=== PATIENT | female | born 1970 | race Caucasian/White ===

== ENCOUNTER 2020-09-26 | Outpatient (REF) | payer OTHER, SELFPAY ==
[2020-10-02 15:37] LABS: HPV mRNA E6/E7 rflx Not Detected (Not Detected)
== END 2020-09-26 00:01 | disposition home or self-care (01) ==
LOC: HO.LNP
PROVIDERS: Visit Provider Advanced Practice Midwife
DX: Z01.419 Encounter for gynecological examination (general) (routine) without abnormal findings (principal)
CPT/HCPCS: 87624; 87625; 88142

== ENCOUNTER → 2020-09-26 10:57 | Outpatient (BNVA) | payer OTHER, SELFPAY | PROVIDERS: PCP Internal Medicine; Referring Provider Internal Medicine; Visit Provider Advanced Practice Midwife | DX: Z76.89 Persons encountering health services in other specified circumstances (principal) ==

== ENCOUNTER 2020-09-28 11:04 | Outpatient (REF) | payer OTHER, SELFPAY | END 2020-09-28 11:05 | disposition home or self-care (01) | LOC: HO.LAB 11:04 | PROVIDERS: Visit Provider Advanced Practice Midwife | DX: Z13.89 Encounter for screening for other disorder (principal) | CPT/HCPCS: 88142 ==

== ENCOUNTER 2020-10-11 11:47 | Outpatient (REF) | payer OTHER, SELFPAY ==
--- NOTE | 2020-10-11 11:53 | US_ITS ---
EXAMINATION: US PELVIS COMPLETE CLINICAL INFORMATION: Pelvic swelling; postmenopausal patient. COMPARISON: Pelvic ultrasound dated 03/01/2014; CT abdomen and pelvis dated 12/31/2018. TECHNIQUE: Transabdominal and transvaginal imaging were performed. FINDINGS: The uterus is of normal size and echogenicity measuring 7.0 x 4.5 x 4.9 cm. The uterus is anteverted and anteflexed. A regular, homogeneous endometrium is identified measuring 0.6 cm. FIBROIDS: There is 1 fibroid seen. 1. Location: Fundus, myometrial. Size: 1.7 x 2.0 x 1.6 cm. Fibroid characteristics: Hypoechoic. Both ovaries are of normal size and echogenicity. The right measures 2.3 x 1.6 x 1.7 cm for a volume of 4.3 mL. The left measures 1.5 x 0.9 x 2.4 cm for a volume of 1.7 mL. There is no pelvic free fluid. No adnexal mass is seen. There is a tubular structure seen adjacent to the left ovary. US/US transvaginal IMPRESSION: 1. A small uterine fibroid is seen. 2. A left adnexal tubular structure is seen, possibly a hydrosalpinx. If clinically indicated, this can be further evaluated with MRI or hysterosalpingography.
--- NOTE | 2020-10-11 11:53 | US_ITS ---
EXAMINATION: US PELVIS COMPLETE CLINICAL INFORMATION: Pelvic swelling; postmenopausal patient. COMPARISON: Pelvic ultrasound dated 03/01/2014; CT abdomen and pelvis dated 12/31/2018. TECHNIQUE: Transabdominal and transvaginal imaging were performed. FINDINGS: The uterus is of normal size and echogenicity measuring 7.0 x 4.5 x 4.9 cm. The uterus is anteverted and anteflexed. A regular, homogeneous endometrium is identified measuring 0.6 cm. FIBROIDS: There is 1 fibroid seen. 1. Location: Fundus, myometrial. Size: 1.7 x 2.0 x 1.6 cm. Fibroid characteristics: Hypoechoic. Both ovaries are of normal size and echogenicity. The right measures 2.3 x 1.6 x 1.7 cm for a volume of 4.3 mL. The left measures 1.5 x 0.9 x 2.4 cm for a volume of 1.7 mL. There is no pelvic free fluid. No adnexal mass is seen. There is a tubular structure seen adjacent to the left ovary. US/US pelvic complete IMPRESSION: 1. A small uterine fibroid is seen. 2. A left adnexal tubular structure is seen, possibly a hydrosalpinx. If clinically indicated, this can be further evaluated with MRI or hysterosalpingography.
== END 2020-10-11 11:48 | disposition home or self-care (01) ==
LOC: HO.US 11:47
PROVIDERS: PCP Internal Medicine; Visit Provider Advanced Practice Midwife
DX: R19.00 Intra-abdominal and pelvic swelling, mass and lump, unspecified site (principal)
CPT/HCPCS: 76830; 76856

== ENCOUNTER 2020-10-23 11:05 | Outpatient (REF) | payer OTHER, SELFPAY ==
[2020-10-23 16:08] LABS: HCG Quantitative 3 mIU/mL
[2020-10-24 09:07] LABS: Follicle Stimulating Hormone 69.7 mIU/mL
== END 2020-10-23 11:06 | disposition home or self-care (01) ==
LOC: HO.LAB 11:05
PROVIDERS: Visit Provider Advanced Practice Midwife
DX: N91.2 Amenorrhea, unspecified (principal); N94.89 Other specified conditions associated with female genital organs and menstrual cycle
CPT/HCPCS: 83001; 84702; Q3014

== ENCOUNTER 2020-11-09 08:04 | Outpatient (REF) | payer OTHER, SELFPAY | END 2020-11-09 08:05 | disposition home or self-care (01) | LOC: HO.LAB 08:04 | PROVIDERS: Visit Provider Obstetrics & Gynecology | DX: R10.2 Pelvic and perineal pain (principal); G89.29 Other chronic pain; R31.29 Other microscopic hematuria; Z79.899 Other long term (current) drug therapy | CPT/HCPCS: 81003; 87086; 99212 ==

== ENCOUNTER 2020-12-06 13:49 | Outpatient (REF) | payer OTHER, SELFPAY ==
--- NOTE | ~2020-12-06 | MM_ITS ---
EXAMINATION: MM SCREENING DIGITAL BREAST TOMOSYNTHESIS, BILATERAL CLINICAL INFORMATION: Screening. Asymptomatic. The lifetime risk of breast cancer based on the Tyrer-Cuzick Model is 7.5%. COMPARISON: Mammography: 05/04/2019 and studies dating back to 12/06/2011. TECHNIQUE: Digital breast tomosynthesis is performed in both the craniocaudal and mediolateral oblique views along with computer-aided detection (CAD). Synthesized 2D images are generated from the tomosynthesis. FINDINGS: There are scattered areas of fibroglandular density (ACR BI-RADS breast composition Category b). There is a stable parenchymal pattern within the left breast with no new abnormal dominant mass or suspicious grouping of microcalcifications. Within the anterior aspect lateral and superiorly of the right breast, there is a circumscribed density without calcifications or architectural distortion. Recommend spot compression film and ultrasound evaluation. MM/MM tomosynthesis screening BI IMPRESSION: Right breast density for further evaluation as described. ASSESSMENT: BI-RADS 0: Incomplete - Need Additional Imaging Evaluation RECOMMENDATION: 1. Additional views of the right breast. 2. Targeted ultrasound if warranted after review of the additional views. 3. Radiology department staff will contact the patient for additional imaging. This patient's information was entered into a reminder system with a target due date for their next mammogram.
== END 2020-12-06 13:50 | disposition home or self-care (01) ==
LOC: HO.MAMMO 13:49
PROVIDERS: PCP Internal Medicine; Visit Provider Internal Medicine
DX: Z12.31 Encounter for screening mammogram for malignant neoplasm of breast (principal)
CPT/HCPCS: 77063; 77067

== ENCOUNTER 2021-01-08 10:03 | Outpatient (REF) | payer OTHER, SELFPAY ==
--- NOTE | ~2021-01-08 | MM_ITS ---
EXAMINATION: MM DIAGNOSTIC DIGITAL BREAST TOMOSYNTHESIS, RIGHT US DIAGNOSTIC ULTRASOUND BREAST, RIGHT CLINICAL INFORMATION: Recall from screening for asymmetric density anterior upper outer right breast. COMPARISON: Mammography: 12/06/2020, 05/04/2019, 04/13/2018 TECHNIQUE: Digital breast tomosynthesis is performed. 2D images are generated from the tomosynthesis. The following views are obtained: 3-D spot CC, 3-D rolled CC lateral, 3-D spot MLO. Ultrasound right breast is targeted to the anterior upper outer breast. Grayscale imaging and color Doppler are performed without and with harmonics. FINDINGS: There are scattered areas of fibroglandular density (ACR BI-RADS breast composition Category b). The additional views confirm focal asymmetric density anterior upper outer right breast. This represents change from prior studies. There are some partially visualized and smooth curvilinear borders. No architectural abnormality or associated calcifications. Ultrasound demonstrates a benign complicated cyst at site of mammographic interest anterior 10:00 position measuring 1.1 x 0.8 x 0.7 cm. The cyst is anechoic with some scattered very fine avascular internal septations. There is no solid component. Margins are circumscribed and there is increased through-transmission of sound. No associated peripheral or internal color flow. There is no solid mass or ductal ectasia or architectural abnormality in the targeted area. Results are discussed with the patient at time of visit. MM/MM tomosynthesis added views R IMPRESSION: Finding on recent screening mammography corresponds to a cyst anterior 10:00 position measuring 1.1 cm with some fine avascular internal septations. No solid component. ASSESSMENT: BI-RADS 2: Benign RECOMMENDATION: Routine annual mammography screening. This patient's information was entered into a reminder system with a target due date for their next mammogram.
== END 2021-01-08 10:04 | disposition home or self-care (01) ==
LOC: HO.MAMMO 10:03
PROVIDERS: Visit Provider Internal Medicine
DX: R92.2 Inconclusive mammogram (principal)
CPT/HCPCS: 76642; 77061; 77065

== ENCOUNTER 2021-12-20 10:40 | Outpatient (REF) | payer OTHER, SELFPAY ==
[2021-12-20 17:18] LABS: CT PCR NOT DETECTED (Not Detect.); NG PCR NOT DETECTED (Not Detect.)
== END 2021-12-20 10:41 | disposition home or self-care (01) ==
LOC: HO.LNP 10:40
PROVIDERS: PCP Internal Medicine; Visit Provider Obstetrics & Gynecology
DX: Z01.419 Encounter for gynecological examination (general) (routine) without abnormal findings (principal); R10.2 Pelvic and perineal pain; G89.29 Other chronic pain; Z11.3 Encounter for screening for infections with a predominantly sexual mode of transmission; I10 Essential (primary) hypertension; E78.5 Hyperlipidemia, unspecified; Z11.8 Encounter for screening for other infectious and parasitic diseases; Z98.51 Tubal ligation status; Z91.09 Other allergy status, other than to drugs and biological substances
CPT/HCPCS: 87491; 87591; 99212

== ENCOUNTER 2022-01-09 12:35 | Outpatient (REF) | payer OTHER, SELFPAY ==
--- NOTE | ~2022-01-09 | MM_ITS ---
EXAMINATION: MM SCREENING DIGITAL BREAST TOMOSYNTHESIS, BILATERAL CLINICAL INFORMATION: Screening. Asymptomatic. The lifetime risk of breast cancer based on the Tyrer-Cuzick Model is 7%. COMPARISON: Mammography: 01/08/2021, 12/06/2020, 05/04/2019, 04/13/2018 TECHNIQUE: Digital breast tomosynthesis is performed in both the craniocaudal and mediolateral oblique views along with computer-aided detection (CAD). Synthesized 2D images are generated from the tomosynthesis. FINDINGS: There are scattered areas of fibroglandular density (ACR BI-RADS breast composition Category b). There are no significant masses, abnormal calcifications, or other abnormalities. Parenchymal pattern is similar to prior studies. There is no developing density or architectural abnormality. The axilla and skin contours are unremarkable. No significant changes. MM/MM tomosynthesis screening BI IMPRESSION: No mammographic evidence of malignancy. ASSESSMENT: BI-RADS 1: Negative RECOMMENDATION: Routine annual mammography screening. This patient's information was entered into a reminder system with a target due date for their next mammogram.
== END 2022-01-09 12:36 | disposition home or self-care (01) ==
LOC: HO.MAMMO 12:35
PROVIDERS: PCP Internal Medicine; Visit Provider Internal Medicine
DX: Z12.31 Encounter for screening mammogram for malignant neoplasm of breast (principal)
CPT/HCPCS: 77063; 77067

== ENCOUNTER 2022-01-22 13:27 | Outpatient (REF) | payer OTHER, SELFPAY ==
--- NOTE | ~2022-01-22 | US_ITS ---
EXAMINATION: US PELVIS CLINICAL INFORMATION: Pelvic and perineal pain; the last menstrual period is not specified. COMPARISON: Pelvic ultrasound dated 10/11/2020. TECHNIQUE: Ultrasound of the pelvis is performed using both transabdominal and transvaginal transducers along with Doppler. Transvaginal imaging is performed due to inadequate visualization transabdominally. FINDINGS: Uterus: The uterus is anteverted and anteflexed. The uterus measures 7.4 x 3.8 x 6.2 cm. The double wall endometrial thickness is 0.4 mm. The uterus is smooth in contour and has normal myometrial echogenicity. Within the fundus, a 2.1 x 1.5 x 2.0 cm hypoechoic myometrial fibroid is seen. On the prior examination, this measured 1.7 x 2.0 x 1.6 cm. Adnexa: The left, but not the right ovary, is visualized. The left ovary measures 2.0 x 1.9 x 1.5 cm (volume 3.0 mL). There is normal color flow to the adnexa. There is no left ovarian torsion. The left ovary contains a 1.4 x 0.9 x 1.1 cm cyst. Adjacent to the left ovary, a 2.5 x 0.5 cm anechoic, tubular structure is redemonstrated There is no pelvic ascites or fluid collection. No adnexal mass is seen. US/US pelvic and transvaginal IMPRESSION: 1. A small uterine fibroid is redemonstrated. 2. The right ovary is nonvisualized. 3. A 1.4 cm left ovarian hypoechoic, hemorrhagic cyst is of incidental note. No ultrasound follow-up is recommended. 4. A left adnexal tubular structure is redemonstrated, with appearance again suggesting a possible hydrosalpinx.
== END 2022-01-22 13:28 | disposition home or self-care (01) ==
LOC: HO.US 13:27
PROVIDERS: PCP Internal Medicine; Visit Provider Obstetrics & Gynecology
DX: R10.2 Pelvic and perineal pain (principal); G89.29 Other chronic pain
CPT/HCPCS: 76830; 76856

== ENCOUNTER → 2022-02-05 11:28 | Outpatient (BNVA) | payer OTHER, SELFPAY | PROVIDERS: Visit Provider Obstetrics & Gynecology | DX: G89.29 Other chronic pain (principal); R10.2 Pelvic and perineal pain; N70.11 Chronic salpingitis; N83.202 Unspecified ovarian cyst, left side | CPT/HCPCS: 96372; 99211; J0696; Q3014 ==

== ENCOUNTER 2022-02-22 15:02 | Outpatient (REF) | payer OTHER, SELFPAY ==
[2022-02-22 16:11] LABS: Blood Urea Nitrogen 14 mg/dL (9-16); Estimated Glomerular Filt Rate > 60
== END 2022-02-22 15:03 | disposition home or self-care (01) ==
LOC: HO.LAB 15:02
PROVIDERS: PCP Internal Medicine; Visit Provider Obstetrics & Gynecology
DX: G89.29 Other chronic pain (principal); R10.2 Pelvic and perineal pain
CPT/HCPCS: 36415; 82565; 84520

== ENCOUNTER 2022-02-25 08:51 | Outpatient (REF) | payer OTHER, SELFPAY ==
--- NOTE | ~2022-02-25 | MR_ITS ---
EXAMINATION: MR PELVIS WITHOUT AND WITH CONTRAST CLINICAL INFORMATION: Pelvic and perineal pain. COMPARISON: Previous pelvic ultrasounds, most recent December [address] of the abdomen and pelvis December 2018. TECHNIQUE: Sagittal axial and coronal sequences through the pelvis with and without contrast. The patient received 10 mL intravenous gadolinium contrast. FINDINGS: The uterus is to the right of midline. The uterus measures 6.5 x 3.8 x 5 cm in sagittal AP and transverse dimension. No focal uterine lesion is seen. Endometrial thickness is normal measuring 4 mm. The junctional zone does not appear thickened. There are several small bright T2 weighted sequences areas in the uterus questionable for myometrial cysts. Largest measures 3 to 4 mm. No other focal uterine lesion. The cervix is normal. The ovaries are normal appearing. No evidence of hydrosalpinx is seen. There are prominent pelvic vessels, left greater than right questionable for pelvic congestion. Bladder is not optimally distended. There are small retroperitoneal lymph nodes in the pelvis. There are small inguinal lymph nodes. There is no ascites. There is a 2.5 x 5 cm cyst in the lower pole of the right kidney. There is diverticulosis of the colon. There is degenerative disc signal of the lower lumbar spine. MR/MR pelvis wo/w con IMPRESSION: Uterus to the right of midline. Normal-appearing ovaries. No evidence of hydrosalpinx. Prominent pelvic vessels, left greater than right, questionable for pelvic congestion.
== END 2022-02-25 08:52 | disposition home or self-care (01) ==
LOC: HO.MRI 08:51
PROVIDERS: Visit Provider Obstetrics & Gynecology
DX: R10.2 Pelvic and perineal pain (principal); G89.29 Other chronic pain
CPT/HCPCS: 72197; A9585

== ENCOUNTER → 2022-03-13 10:59 | Outpatient (BNVA) | payer OTHER, SELFPAY | PROVIDERS: Visit Provider Obstetrics & Gynecology | DX: N94.89 Other specified conditions associated with female genital organs and menstrual cycle (principal) | CPT/HCPCS: 99212 ==

== ENCOUNTER 2022-08-01 11:29 | Outpatient (REF) | payer OTHER, SELFPAY ==
[2022-08-02 06:22] LABS: CT PCR NOT DETECTED (Not Detect.); NG PCR NOT DETECTED (Not Detect.)
== END 2022-08-01 11:30 | disposition home or self-care (01) ==
LOC: HO.LNP 11:29
PROVIDERS: Visit Provider Obstetrics & Gynecology
DX: Z11.3 Encounter for screening for infections with a predominantly sexual mode of transmission (principal); N94.89 Other specified conditions associated with female genital organs and menstrual cycle; R10.2 Pelvic and perineal pain
CPT/HCPCS: 87491; 87591; 99212

== ENCOUNTER 2022-09-04 13:56 | Outpatient (REF) | payer OTHER, SELFPAY ==
--- NOTE | ~2022-09-04 | US_ITS ---
EXAMINATION: US PELVIS CLINICAL INFORMATION: Pelvic and perineal pain. COMPARISON: None. TECHNIQUE: Ultrasound of the pelvis is performed using both transabdominal and transvaginal transducers along with Doppler. Transvaginal imaging is performed due to inadequate visualization transabdominally. FINDINGS: Uterus: The uterus is retroverted, retroflexed and measures 7.8 x 3.8 x 5.7 cm. The double wall endometrial thickness is 0.4 cm. The uterus is smooth in contour and has normal myometrial echogenicity. Previous ultrasound visualized fibroid is not seen at this time. Adnexa: Both ovaries are visualized. There is normal color flow to the adnexa. There is no ovarian torsion. There is no pelvic ascites or fluid collection. Right ovary measures 1.9 x 1.3 x 1.9 cm and volume 2.4 mL. The right ovary is unremarkable. Previously right ovary measured 2.3 x 1.6 1.7 cm and volume 4.3 mL. Left ovary measures 2.3 x 1.6 x 0.9 cm and volume 1.70. It appears unremarkable. Previously it measured 2.0 x 1.9 x 1.5 cm and volume 3.0 mL. There is no free fluid in cul-de-sac. US/US pelvic and transvaginal IMPRESSION: Unremarkable uterus and ovaries. Previous ultrasound visualized fibroid is not seen at this time.
== END 2022-09-04 13:57 | disposition home or self-care (01) ==
LOC: HO.US 13:56
PROVIDERS: Visit Provider Obstetrics & Gynecology
DX: R10.2 Pelvic and perineal pain (principal)
CPT/HCPCS: 76830; 76856

== ENCOUNTER → 2022-09-18 12:27 | Outpatient (BNVA) | payer OTHER, SELFPAY | PROVIDERS: PCP Internal Medicine; Visit Provider Obstetrics & Gynecology | DX: R10.2 Pelvic and perineal pain (principal); G89.29 Other chronic pain | CPT/HCPCS: 99212 ==

== ENCOUNTER → 2022-12-26 08:59 | Outpatient (BNVA) | payer OTHER, SELFPAY | PROVIDERS: PCP Internal Medicine; Visit Provider Obstetrics & Gynecology | DX: Z13.89 Encounter for screening for other disorder (principal) ==

== ENCOUNTER 2023-02-07 12:31 | Outpatient (REF) | payer OTHER, SELFPAY ==
--- NOTE | ~2023-02-07 | MM_ITS ---
EXAMINATION: MM SCREENING DIGITAL BREAST TOMOSYNTHESIS, BILATERAL CLINICAL INFORMATION: Screening. Asymptomatic. The lifetime risk of breast cancer based on the Tyrer-Cuzick Model is 6%. COMPARISON: Mammography: January 09, 2022 and studies dating back to April 17, 2015 TECHNIQUE: Digital breast tomosynthesis is performed in both the craniocaudal and mediolateral oblique views along with computer-aided detection (CAD). Synthesized 2D images are generated from the tomosynthesis. FINDINGS: There are scattered areas of fibroglandular density (ACR BI-RADS breast composition Category b). There are no significant masses, abnormal calcifications, or other abnormalities. MM/MM tomosynthesis screening BI IMPRESSION: No significant changes ASSESSMENT: BI-RADS 1: Negative RECOMMENDATION: Routine annual mammography screening. This patient's information was entered into a reminder system with a target due date for their next mammogram.
== END 2023-02-07 12:32 | disposition home or self-care (01) ==
LOC: HO.MAMMO 12:31
PROVIDERS: PCP Internal Medicine; Visit Provider Obstetrics & Gynecology
DX: Z12.31 Encounter for screening mammogram for malignant neoplasm of breast (principal)
CPT/HCPCS: 77063; 77067

== ENCOUNTER 2023-11-13 11:47 | Outpatient (AMB) | payer OTHER, SELFPAY ==
[2023-11-13 11:53] VITALS: BP 122/80; BMI 37.4
--- NOTE | 2023-11-13 11:53 | A.OFFVIS_ITS ---
Intake Vital Signs 11/13/23 11:53 Height 5 ft 6 in Weight 232 lb BMI 37.4 BP 122/80 Intake Visit Reasons: ? menopause Internal Security Manager Required: No Allergies SEASONAL ALLERGIES Allergy (Unknown, Uncoded 11/13/23 11:53) ITCHY EYES Is last menstrual period known: No HPI HPI Comments History of Present Illness Details Presenting complaining of hot flashes started 6 weeks ago. FSH in 10/15 was in the menopausal range. PFSH Medical History Tubal ligation evaluation Aftercare following bilateral shoulder joint replacement surgery Hyperlipidemia HTN (hypertension) Surgical History H/O tubal ligation H/O left knee surgery Social History Household Members Other:: son Housing: House Alcohol intake: current Alcohol intake frequency: holidays/special occasions only Patient Tobacco Use Status: Former Tobacco user Cigarettes Per Day: 20 Current occupational status: unemployed Sexual orientation: Straight/Heterosexual Gender identity: Female Female Reproductive History Menstrual Age of Menarche: 12 control method: permanent sterilization Date of last pap smear: 09/29/20 (negative) Date of Mammogram: 02/07/23 Review of Systems Const All systems reviewed & are unremarkable except as noted in HPI and below Reports as per HPI and Reports no additional complaints GI Reports no additional complaints Reports no additional complaints Physical Exam Vital Signs: Last Vital Signs BP 122/80 11/13/23 11:53 BMI result Body Mass Index 37.4 Assessment & Plan Assessment & Plan (1) Hot flashes: Code(s): R23.2 - [place] Plan: Discussed with the patient the options of treatment of hot flashes including hormonal replacement therapy, all the pros, cons, risks and benefits (benefits= prevention of hot flashes, atrophic vaginitis, osteoporosis, decrease colon ca risk; also discussed with the patient the risks of OK, Breast ca, DVT, PE, Strokes). In addition, discussed with the patient non hormonal treatment options for hot flashes treatment in surgical menopausal patient. Options discussed with the patient include the following: SSRI/SNRIs will interact with her medication Clonidine patch 0.1 mg per day up to 0.3 mg per day is another acceptable less effective options with high side effect profile Oxybutynin 5-10 mg p.o. q.d. has been shown to relieve hot flashes, the most common side effects will be dry mouth in 20-30% of patients The patient decided to think about it and if her hot flashes will get worse will call back. All questions answered, the patient verbalized understanding Orders: Orders TSH reflex Free T4 () Today R23.2 - [place] Coding Level of Care Code Est Pt Level 3 (79497) Diagnoses Hot flashes R23.2
== END 2023-11-13 15:09 | disposition home or self-care (01) ==
LOC: HO.HWS 11:47
PROVIDERS: PCP Internal Medicine; Visit Provider Obstetrics & Gynecology
DX: R23.2 Flushing (principal)
CPT/HCPCS: 99213

== ENCOUNTER → 2023-11-13 11:47 | Outpatient (BNVA) | payer OTHER, SELFPAY | PROVIDERS: PCP Internal Medicine; Visit Provider Obstetrics & Gynecology | DX: R23.2 Flushing (principal) | CPT/HCPCS: 99212 ==

== ENCOUNTER 2023-11-18 17:03 | Outpatient (REF) | payer OTHER, SELFPAY ==
[2023-11-18 18:49] LABS: TSH reflex Free T4 (Prenatal) 1.08 uIU/mL (0.32-4.0)
== END 2023-11-18 17:04 | disposition home or self-care (01) ==
LOC: HO.LAB 17:03
PROVIDERS: PCP Internal Medicine; Visit Provider Obstetrics & Gynecology
DX: R23.2 Flushing (principal)
CPT/HCPCS: 36415

== ENCOUNTER 2024-02-17 10:40 | Outpatient (AMB) | payer OTHER, SELFPAY ==
[2024-02-17 10:54] VITALS: BP 104/72; BMI 34.7
--- NOTE | 2024-02-17 10:54 | MHC.OFFVIS ---
Vital Signs 02/17/24 10:54 Height 5 ft 6 in Weight 215 lb BMI 34.7 BP 104/72 Intake Visit Reasons: [employer] HAIR annual exam Product Safety Expert Required: No Information Interpreted: non-clinical & clinical Coil Inspector: Coil Inspector Present (Kaycee) Allergies SEASONAL ALLERGIES Allergy (Unknown, Uncoded 02/17/24 10:58) ITCHY EYES Is last menstrual period known: No Post menopausal: Yes HPI Comments Details: Presenting for annual exam. No complaints. 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 Hyperlipidemia HTN (hypertension) Surgical History History of mandibular surgery Hx of shoulder surgery History of endometrial ablation H/O tubal ligation H/O left knee surgery Family History Maternal Grandmother Ovarian cancer Paternal Aunt Uterine cancer Social History Household Members Other:: son Housing: House Alcohol intake: current Alcohol intake frequency: holidays/special occasions only Patient Tobacco Use Status: Former Tobacco user Cigarettes Per Day: 20 Current occupational status: unemployed Sexual orientation: Straight/Heterosexual Gender identity: Female Female Reproductive History Menstrual Age of Menarche: 12 control method: permanent sterilization Total pregnancies: 6 Full term: 3 Number of Living Children: 3 Ab induced: 2 Ab spontaneous: 1 Date of last pap smear: 09/29/20 (negative) History of abnormal pap smear: Yes Date of Mammogram: 02/07/23 Review of Systems Const All systems reviewed & are unremarkable except as noted in HPI and below Card Reports as per HPI Resp Reports as per HPI GI Reports as per HPI and Reports no additional complaints Reports as per HPI Physical Exam Vital Signs: BMI result Body Mass Index 34.7 Const General: cooperative, healthy appearing and comfortable Chest Chest palpation & inspection: normal inspection of the chest and normal palpation of entire chest wall Breast/axilla inspection: normal inspection of the breasts and normal inspection of the axillae Breast/axilla palpation: normal palpation of the breasts, normal palpation of the axillae and no axillary lymphadenopathy Resp Effort & Inspection: normal respiratory effort Auscultation: clear to auscultation bilaterally Percussion: percussion normal Cardio Palpation: normal PMI Rate: regular rate Rhythm: regular rhythm Heart sounds: no murmurs and no rubs Peripheral pulses: Peripheral pulses 2+ throughout GI Inspection: Yes normal to inspection Palpation (GI): Soft to palpation, nontender, no guarding, not rigid and No hepatosplenomegaly present Percussion: Yes normal to percussion Auscultation: normal bowel sounds Rectal Exam - Female: deferred General: Yes bladder normal to palpation External Female Exam: No lesion Speculum Exam - Vagina: normal appearance of the vagina, normal palpation, normal vaginal discharge and not erythematous Speculum Exam - Cervix: normal appearance of the cervix and normal palpation Bimanual exam- vagina & uterus: normal bimanual exam, normal palpation, uterine size normal, bladder normal to palpation, consistency normal and normal palpation Bimanual Exam- Adnexa, other: normal adnexae, no masses and no tenderness Assessment & Plan Assessment & Plan (1) Well woman exam with routine gynecological exam: Code(s): Z01.419 - Encounter for gynecological examination (general) (routine) without abnormal findings Category: Medical Plan: Co testing not indicated this year. Counseled the patient about the recommended dietary allowance of 1200 mg of Calcium & 600 IU of vitamin D. Mammogram ordered. The patient was instructed to perform monthly self-breast exams and schedule annual exam in a year. All questions answered and the patient verbalized understanding. Orders: Orders MM tomosynthesis screening BI Today Z12.31 - Encounter for screening mammogram for malignant neoplasm of breast
== END 2024-02-17 11:13 | disposition home or self-care (01) ==
PROVIDERS: PCP Internal Medicine; Visit Provider Obstetrics & Gynecology
DX: Z01.419 Encounter for gynecological examination (general) (routine) without abnormal findings (principal)
CPT/HCPCS: 99396

== ENCOUNTER → 2024-02-17 10:40 | Outpatient (BNVA) | payer OTHER, SELFPAY | PROVIDERS: PCP Internal Medicine; Visit Provider Obstetrics & Gynecology ==

== ENCOUNTER 2024-03-05 13:44 | Outpatient (REF) | payer OTHER, SELFPAY | END 2024-03-05 13:45 | disposition home or self-care (01) | LOC: HO.MAMMO 13:44 | PROVIDERS: PCP Internal Medicine; Visit Provider Obstetrics & Gynecology | DX: Z12.31 Encounter for screening mammogram for malignant neoplasm of breast (principal) | CPT/HCPCS: 77063; 77067 ==

== ENCOUNTER → 2024-03-05 13:45 | Outpatient (BNV) | payer OTHER, SELFPAY | PROVIDERS: PCP Internal Medicine; Visit Provider Radiology Diagnostic Radiology | DX: Z12.31 Encounter for screening mammogram for malignant neoplasm of breast (principal) | CPT/HCPCS: 77063; 77067 ==

== ENCOUNTER 2024-08-21 19:06 | Emergency (ER) | payer OTHER, SELFPAY ==
--- NOTE | ~2024-08-21 | XR_ITS ---
EXAMINATION: XR CHEST 2 VIEWS CLINICAL INFORMATION: Cough and shortness of breath. COMPARISON: Chest radiographs dated 10/17/2017. TECHNIQUE: Frontal and lateral views of the chest were obtained. FINDINGS: The heart, great vessels, pulmonary vasculature and mediastinum are normal. The lungs show no focal infiltrate, effusion or pneumothorax. There is mild biapical pleural thickening. There are benign, calcified left lung granulomas. There is no acute osseous abnormality. There is a mild thoracic dextroscoliosis. An orthopedic anchor is applied to the right humeral head. XR/XR chest 2V IMPRESSION: No active cardiopulmonary disease. Electronically signed by: Jonathon Silverman MD 08/21/2024 09:17 PM EDT RP
--- NOTE | 2024-08-21 19:32 | ED_ITS ---
HPI - General Adult General Chief complaint: Upper Respiratory Symptoms Stated complaint: cough Time Seen by Provider: 08/21/24 20:58 Source: patient Mode of arrival: ambulatory Limitations: no limitations History of Present Illness ED Provider: MIRIAM HPI narrative: 53 yo female with PMH of asthma still a smoker, HTN, HLD, here with c/o green sputum, cough, congestion x 1 week after exposure to son who has been sick for 1 week. No fevers, no chest pain. No improvement with rescue inhaler. She is worried she has pneumonia too. No recent travel or procedures. MD complaint: cough Onset (ago): week(s) (1) Location: chest Radiation: non-radiation Severity: moderate Quality: dull Relieving factors: none Exacerbating factors: movement Associated symptoms: cough and shortness of breath Treatments prior to arrival: none Related Data Home Medications ?Medication ?Instructions ?Recorded ?Confirmed atorvastatin 20 mg tablet (Lipitor) 20 mg PO DAILY 09/26/20 11/09/20 duloxetine 60 mg capsule,delayed 60 mg PO BID 09/26/20 11/09/20 release (Cymbalta) esomeprazole magnesium 40 mg 40 mg PO DAILY 09/26/20 11/09/20 capsule,delayed release (Nexium) pregabalin 150 mg capsule (Lyrica) 150 mg PO BID 09/26/20 11/09/20 amlodipine 5 mg tablet 5 mg PO DAILY 10/23/20 11/09/20 cholecalciferol (vitamin D3) 25 25 mcg PO DAILY 12/26/22 mcg (1,000 unit) capsule cyclobenzaprine 5 mg tablet 5 mg PO BEDTIME PRN 11/13/23 dicyclomine 20 mg tablet 20 mg PO TID 11/13/23 fluticasone propionate 50 spray intranasal 11/13/23 mcg/actuation nasal spray,suspension ketoconazole 2 % topical cream appl topical DAILY 11/13/23 linaclotide 145 mcg capsule 145 mcg PO DAILY 11/13/23 (Linzess) semaglutide 0.25 mg or 0.5 mg (2 mg subcut 11/13/23 mg/3 mL) subcutaneous pen injector (Ozempic) varenicline 0.5 mg (11)-1 mg (42) ea PO 11/13/23 tablets in a dose pack albuterol sulfate 90 mcg/actuation inhalation 02/17/24 aerosol inhaler Previous Rx's ?Medication ?Instructions ?Recorded doxycycline hyclate 100 mg capsule 100 mg PO BID 7 days #14 caps 08/21/24 prednisone 20 mg tablet 40 mg (2 x 20 mg) PO DAILY 5 days 08/21/24 #10 tabs Allergies Allergy/AdvReac Type Severity Reaction Status Date / Time ibuprofen AdvReac Unknown Verified 08/21/24 19:33 SEASONAL ALLERGIES Allergy Unknown ITCHY EYES Uncoded 08/21/24 19:33 Review of Systems Review of Systems: Constitutional : No Fever, No Chills ENT/Mouth : No Hoarseness, No sore throat, No Rhinorrhea Eyes: No Redness, No Discharge, No Vision Changes Cardiovascular : No Chest Pain, positive SOB, no Dyspnea on Exertion, No Edema Respiratory : positive Cough, pos Sputum, positive Wheezing, Gastrointestinal : No Nausea, No Vomiting, No Diarrhea, No abdominal Pain Genitourinary : No Dysuria, No Hematuria Musculoskeletal : No joint pain, No Myalgias Skin : No rash Neuro : No Weakness, No Numbness, No Headache Psych : No anxiety, depression Heme/Lymph: No Bruising, No Bleeding Endocrine : No Polyuria, No Polydipsia All other systems reviewed and are negative PMFSH Past Medical History Attestation statement: The following information was validated with the patient. Source: old records reviewed Medical History Tubal ligation evaluation Aftercare following bilateral shoulder joint replacement surgery Hyperlipidemia HTN (hypertension) Surgical History History of mandibular surgery Hx of shoulder surgery History of endometrial ablation H/O tubal ligation H/O left knee surgery Family History Family History Maternal Grandmother Ovarian cancer Paternal Aunt Uterine cancer Social History Social History Household Members Other:: son Housing: House Alcohol intake: current Alcohol intake frequency: holidays/special occasions only Patient Tobacco Use Status: Former Tobacco user Cigarettes Per Day: 20 Advance Directives: No Advance Directives Information Provided: No Current occupational status: unemployed Sexual orientation: Straight/Heterosexual Gender identity: Female Physical Exam ED Vital Signs: Vital Signs - 24 hr 08/21/24 19:33 Temperature 98.5 F Pulse Rate 71 Respiratory Rate 18 Blood Pressure 110/70 Pulse Oximetry 99 Oxygen Delivery Method Room Air BMI result Body Mass Index 38.1 Appearance: Alert. Oriented X3. No acute distress. Eyes: Pupils equal, round and reactive to light. ENT: Pharynx normal. Neck: Normal inspection. Neck supple. CVS: Normal heart rate and rhythm. Pulses normal. Respiratory: No respiratory distress. Breath sounds diminished with rhonchi anteriorly Abdomen: Soft and nontender. Skin: Skin warm and dry. Normal skin color. Normal skin turgor. Extremities: No lower extremity edema. No calf ttp Neuro: Oriented X 3. No motor deficit. No sensory deficit. Course Course Course Narrative: This is a Rapid Medical Examination (RME) performed by Naomi Stanton PA-C in triage. Full HPI, ROS, assessment and treatment plan per primary provider in the Main ED. 53 yo female hx of HTN, HDL here for eval of cough productive of green sputum and fatigue x1 week. grandson at home ill with pneumonia. Plan: viral serology, CXR Medical Decision Making Medical Decision Making MDM Narrative: 53 yo female with PMH of asthma still a smoker, HTN, HLD, here with c/o cough, congestions and sputum production but no fevers she is not toxic at this time given asthma, age smoking hx will treat as bronchitis. No signs of hypoxia, no chest pain doubt ACS or VTE this seems infectious in nature. Differential Diagnosis Differential Diagnoses: The differential diagnosis associated with the presentation includes bronchitis, asthma, chest congestion Admission/Observation Consideration of admission/observation: Escalation of care including admission/observation considered not toxic, no hypoxia Lab Data [facility] Lab Attestation statement: I reviewed the patient's lab results. Labs: Lab Results 08/21/24 Range/Units 19:43 Influenza Type A (PCR) NEGATIVE (Negative) Influenza Type B (PCR) NEGATIVE (Negative) RSV RNA Qual (PCR) NEGATIVE (Negative) SARS-CoV-2 RNA (RT-PCR) NEGATIVE (Negative) Independent Interpretation I performed an independent interpretation of an: Plain X-Ray (normal ) Radiology Impression Discussion of test interpretation with radiology: I have reviewed the radiologist's reading. Independent Historian Clinical information obtained from an independent historian. History obtained from or confirmed by: Other (daughter) Prescription Management I considered prescription management with: Antibiotic and Other Discharge Plan Discharge Clinical Impression: Bronchitis Patient Disposition: Home, Self-Care Instructions: Acute Bronchitis (ED) Additional Instructions: negative for covid/flu/rsv no pneumonia on chest xray return for worsening symptoms such as fevers, difficulty breathing or any other concerns On doxycycline, do not take pills immediately before going to bed and swallow pills with plenty of water. Avoid direct sunlight, iron, antacids, and Pepto Bismol. Call your provider if you develop new ringing in your ears, new problems hearing, dizziness, difficulty swallowing, rash, abdominal discomfort, nausea, or diarrhea.? Prescriptions: New doxycycline hyclate 100 mg capsule 100 mg PO BID 7 Days Qty: 14 0RF prednisone 20 mg tablet 40 mg PO DAILY 5 Days Qty: 10 0RF No Action duloxetine [Cymbalta] 60 mg capsule,delayed release(DR/EC) 60 mg PO BID atorvastatin [Lipitor] 20 mg tablet 20 mg PO DAILY esomeprazole magnesium [Nexium] 40 mg capsule,delayed release(DR/EC) 40 mg PO DAILY pregabalin [Lyrica] 150 mg capsule 150 mg PO BID amlodipine 5 mg tablet 5 mg PO DAILY cholecalciferol (vitamin D3) 25 mcg (1,000 unit) capsule 25 mcg PO DAILY ceftriaxone 500 mg recon soln 500 mg IM ONCE Qty: 1 0RF Ozempic 0.25 mg or 0.5 mg (2 mg/3 mL) pen injector subcut varenicline 0.5 mg (11)- 1 mg (42) tablets,dose pack PO Linzess 145 mcg capsule 145 mcg PO DAILY ketoconazole 2 % cream topical DAILY dicyclomine 20 mg tablet 20 mg PO TID fluticasone propionate 50 mcg/actuation spray,suspension intranasal cyclobenzaprine 5 mg tablet 5 mg PO BEDTIME PRN albuterol sulfate 90 mcg/actuation HFA aerosol inhaler inhalation Print Language: Azerbaijani
[2024-08-21 19:33] VITALS: BP 110/70; PULSE 71; RESP 18; TEMP 36.9; O2SAT 99; BMI 38.1
[2024-08-21 20:36] LABS: Influenza A PCR NEGATIVE (Negative); Influenza B PCR NEGATIVE (Negative); Resp Syncy Virus RNA Qual PCR NEGATIVE (Negative); SARS COV2 PCR INHOUSE NEGATIVE (Negative)
[2024-08-21 22:07] VITALS: BP 116/70; PULSE 72; RESP 18; TEMP 36.8; O2SAT 99
[2024-08-21 22:47] VITALS: BP 116/70; PULSE 72; RESP 18; TEMP 36.8; O2SAT 99
== END 2024-08-21 22:48 | disposition home or self-care (01) ==
PROVIDERS: Physician Assistant Medical; Emergency Provider Emergency Medicine; PCP Internal Medicine
DX: J40 Bronchitis, not specified as acute or chronic (principal); I10 Essential (primary) hypertension; E78.5 Hyperlipidemia, unspecified; Z03.818 Encounter for observation for suspected exposure to other biological agents ruled out; R05.9 Cough, unspecified
CPT/HCPCS: 0241U; 71046; 99282; 99283

== ENCOUNTER → 2025-06-23 15:00 | Outpatient (BNV) | payer OTHER, SELFPAY | PROVIDERS: PCP Internal Medicine; Visit Provider Internal Medicine | DX: Z12.31 Encounter for screening mammogram for malignant neoplasm of breast (principal) | CPT/HCPCS: 77063; 77067 ==

== ENCOUNTER 2025-06-23 15:06 | Outpatient (REF) | payer OTHER, SELFPAY ==
--- OUTSIDE RECORDS SUMMARY | 2025-06-23 15:46 | XMS_ITS | Clinical Summary ---
Author Organization [facility] Address [address] [place] [address] [place] [id number] Phone Care Team Providers Care Retail Maintenance Technician Name Role Phone Unavailable Primary Care Provider Unavailabl e Social History Tobacco Use Types Packs/Day Years Used Date Smoking Tobacco: Never Assessed Comments Unknown Sex and Gender Information Value Date Recorded Sex Assigned at Not on file Legal Sex Female 6:49 PM EST Gender Identity Not on file Sexual Orientation Not on file Plan of Treatment Not on file Medical Devices Not on file Additional Source Comments The information contained in this document represents components of the legal health record. It is not the complete legal health record.[facility]
--- OUTSIDE RECORDS SUMMARY | 2025-06-23 15:47 | XMS_ITS | Clinical Summary ---
Author Organization [facility] Address [address] [place] [address] Care Team Providers Care Assistant Curator Name Role Phone Devlis Campbell MD Primary Care Provider [phone] Allergies No known active allergies Medications Medication Sig Dispensed Refills Start Date End Date Status cetirizine (ZYRTEC) 10 MG tablet 0 06/27/2017 Active duloxetine (CYMBALTA) DR capsule 60 mg TAKE ONE CAPSULE BY MOUTH EVERY DAY 6 08/11/2017 Active esomeprazole (NEXIUM) 40 MG capsule 0 08/23/2017 Active fluticasone (FLONASE) 50 MCG/ACT nasal spray 0 05/27/2017 Active FLOVENT HFA 110 MCG/ACT inhaler 0 05/27/2017 Active hydrochlorothiazide (MICROZIDE) 12.5 MG capsule 0 08/15/2017 Active LORazepam (ATIVAN) 1 MG tablet TAKE 1 TABLET BY MOUTH 2 HOURS BEFORE INJECTION *MAY REPEAT IN 1 HR IF NEEDED* 0 07/14/2017 Active LYRICA 100 MG capsule 0 08/23/2017 Act erin CHANTIX 1 MG tablet TAKE 1 TABLET BY MOUTH TWICE A DAY 1 08/07/2017 Active meclizine (ANTIVERT) 25 MG tablet take 1 tablet by mouth every 8 hours if needed for dizziness 0 10/18/2017 Active ondansetron (ZOFRAN) 4 MG tablet take 1 tablet by mouth every 6 hours if needed for nausea and vomiting 0 10/18/2017 Active Family History Medical History Relation Name Comments Diabetes Brother Cancer Father Cancer Maternal Grandmother Relation Name Status Comments Brother Father Maternal Grandmother Social History Tobacco Use Types Packs/Day Years Used Date Smoking Tobacco: Never Assessed Sex and Gender Information Value Date Recorded Sex Assigned at Not on file Gender Identity Not on file Sexual Orientation Not on file Last Filed Vital Signs Vital Sign Reading Time Taken Comments Blood Pressure - - Pulse - - Temperature - - Respiratory Rate - - Oxygen Saturation - - Inhaled Oxygen Concentration - - Weight 108.9 kg (240 lb) 09/30/2017 2:13 PM EST Height 170.2 cm (5' 7 ) 09/30/2017 2:13 PM EST Body Mass Index 37.59 09/30/2017 2:13 PM EST Plan of Treatment Health Maintenance Due Date Last Done Comments Hepatitis B Vaccines (1 of 3 - 3-dose series) 1969 Hepatitis C Screening 1969 COVID-19 Vaccine (#1) 05/26/1970 Depression Screening 1981 Preventative Health Evaluation 1987 DTap / Tdap / Td (1 - Tdap) 1988 Cervical Cancer Screening (P ap Smear) 1990 Colon Cancer Screening (Colonoscopy) 2014 Breast Cancer Screening (Mammogram) 2019 Shingrix-Zoster Vaccine (1 of 2) 2019 Influenza Vaccine (#1) 2025 Pneumococcal Vaccine Aged Out No long er eligible based on patient's age to complete this topic RSV Ped < 20 months Aged Out No longe r eligible based on patient's age to complete this topic Care Teams Assistant Curator Relationship Specialty Start Date End Date Delvis Campbell MD PCP - General Internal Medicine 07/10/17
--- OUTSIDE RECORDS SUMMARY | 2025-06-23 15:47 | XMS_ITS | Patient Health Record ---
Author Organization [facility] Address [address] [place] [address] Care Team Providers Care Chicken Stuffer Name Role Phone Arian Tian MD Primary Care Provider Jose M Ferraro Unavailable [phone] Reason For Referral No Information Medications Medication SIG (Take, Route, Fr equency, Duration) Notes Start Date End Date Status Gabapentin 100 MG as directed Orally Active Savella 50 MG 1 tablet Orally Twic e a day; Duration: 30 day(s) Active Problems Problem Type SNOMED Code ICD Code Onset Dates Problem Status W/U Status Risk Notes Problem Disorder of joint of ankle and/or foot (260825073) Arthritis - Degenerative (719.97) Active confirmed Problem Neuralgia - Neuritis (729.2) Active confirmed Problem Hallux valgus (907025401) Hallux Valgus (735.0) Active confirmed Problem Congenital pes planus (60230016) Flat Foot, Congenital (754.61) Active confirmed Problem Pain in limb (51443115) Pain in Limb (729.5) Active confirmed Plan Of Treatment Pending Test Test Name Order Date X ray : Foot, right 3V 06/02/2013 Insurance Providers Payer Name Payer Address Payer Phone Subscriber Number Group Number Insured Name Patient Relationship to Insured Coverage Start Date Coverage End Date [facility] [employer] S[employer] Claims [address] [place] [phone] [id number] Kisha Stewart Self - patient is the insured Medical (General) History Medical History History ICD Code anxiety Arthritis asthma back, hip, knee pain depression hypertension nerve disease neuropathy poor circulation chicken pox measles mumps fibromyalgia Surgical History Surgery Date(Month/Year) knee surgery, left tubal ligation shoulder surgery
== END 2025-06-23 15:07 | disposition home or self-care (01) ==
LOC: HO.MAMMO 15:06
PROVIDERS: PCP Internal Medicine; Visit Provider Internal Medicine
DX: Z12.31 Encounter for screening mammogram for malignant neoplasm of breast (principal)
CPT/HCPCS: 77063; 77067

== ENCOUNTER 2025-07-26 14:05 | Outpatient (AMB) | payer OTHER, SELFPAY ==
[2025-07-26 14:09] VITALS: BMI 34.4
--- NOTE | 2025-07-26 14:09 | A.OFFVIS_ITS ---
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 Complaining of pelvic pain on and off no associated GI or symptoms, no vaginal discharge or bleeding. Last Pap/HPV was negative in 10/15 Last Mammogram was BI-RADS 1 in 06/20 Last screening colonoscopy in 2019 at [facility], no records available, the recommendation according to patient is to repeat in 2029 [facility] Medical History Tubal ligation evaluation Aftercare following bilateral shoulder joint replacement surgery Hyperlipidemia HTN (hypertension) Surgical History History of mandibular surgery Hx of shoulder surgery History of endometrial ablation H/O tubal ligation H/O left knee surgery Family History Maternal Grandmother Ovarian cancer Paternal Aunt Uterine cancer Social History Household Members Other:: son Housing: House Alcohol intake: current Alcohol intake frequency: holidays/special occasions only Patient Tobacco Use Status: Former Tobacco user Cigarettes Per Day: 20 Current occupational status: unemployed Sexual orientation: Straight/Heterosexual Gender identity: Female Female Reproductive History Menstrual Age of Menarche: 12 Duration of menses: 3-5 days control method: none Total pregnancies: 6 Full term: 3 Ab spontaneous: 1 Date of last pap smear: 09/29/20 (negative) History of abnormal pap smear: Yes Date of Mammogram: 06/23/25 (negative) Review of Systems Const All systems reviewed & are unremarkable except as noted in HPI and below Card Reports as per HPI Resp Reports as per HPI GI Reports as per HPI and Reports no additional complaints Reports as per HPI Physical Exam Vital Signs: BMI result Body Mass Index 34.4 Const General: cooperative, healthy appearing and comfortable Chest Chest palpation & inspection: normal inspection of the chest and normal palpation of entire chest wall Breast/axilla inspection: normal inspection of the breasts and normal inspection of the axillae Breast/axilla palpation: normal palpation of the breasts, normal palpation of the axillae and no axillary lymphadenopathy Resp Effort & Inspection: normal respiratory effort Auscultation: clear to auscultation bilaterally Percussion: percussion normal Cardio Palpation: normal PMI Rate: regular rate Rhythm: regular rhythm Heart sounds: no murmurs and no rubs Peripheral pulses: Peripheral pulses 2+ throughout GI Inspection: Yes normal to inspection Palpation (GI): Soft to palpation, nontender, no guarding, not rigid and No hepatosplenomegaly present Percussion: Yes normal to percussion Auscultation: normal bowel sounds Rectal Exam - Female: deferred General: Yes bladder normal to palpation External Female Exam: No lesion Speculum Exam - Vagina: normal appearance of the vagina, normal palpation, normal vaginal discharge and not erythematous Speculum Exam - Cervix: normal appearance of the cervix and normal palpation Bimanual exam- vagina & uterus: normal bimanual exam, normal palpation, uterine size normal, bladder normal to palpation, consistency normal and normal palpation Bimanual Exam- Adnexa, other: normal adnexae, no masses and no tenderness Results AMB Urinalysis Dipstick UR Leukocytes Negative Last Edit by Abhi Henson CMA on 07/26/25 14:48 UR Nitrite Negative Last Edit by Abhi Henson CMA on 07/26/25 14:48 UR Urobilinogen Normal Last Edit by Abhi Henson CMA on 07/26/25 14:48 UR Protein Negative Last Edit by Abhi Henson CMA on 07/26/25 14:48 UR Ph 6.0 Last Edit by Abhi Henson CMA on 07/26/25 14:48 UR Blood Negative Last Edit by Abhi Henson CMA on 07/26/25 14:48 UR Specific [place] 1.005 Last Edit by Abhi Henson CMA on 07/26/25 14:48 UR Ketone Negative Last Edit by Abhi Henson CMA on 07/26/25 14:48 UR Bilirubin Negative Last Edit by Abhi Henson CMA on 07/26/25 14:48 UR Glucose Negative Last Edit by Abhi Henson CMA on 07/26/25 14:48 Assessment & Plan Assessment & Plan (1) Well woman exam with routine gynecological exam: Code(s): Z01.419 - Encounter for gynecological examination (general) (routine) without abnormal findings Category: Medical Plan: Co testing done. Counseled the patient about the recommended dietary allowance of 1200 mg of Calcium & 600 IU of vitamin D. Instructions given to patient to schedule next screening Mammogram in 06/21. The patient was instructed to perform monthly self-breast exams and schedule annual exam in a year. All questions answered and the patient verbalized understanding. (2) Pelvic pain: Code(s): R10.2 - Pelvic and perineal pain Category: Medical Plan: Urine dip done in the office was negative. GC and chlamydia taken and pelvic ultrasound ordered. Discussed with the patient the differential diagnosis of pelvic pain including but not limited to adnexal, uterine masses, pelvic infections (PID), GI the (Irritable bowel syndrome, diverticulitis, others), musculoskeletal, myofascial pain abdominal wall , adhesions, endometriosis, psychological and others causes. Will check results and treat accordingly. All questions answered, the patient verbalized understanding. Instructed the patient to schedule an ultrasound and a follow-up appointment in 2 weeks. All questions answered, the patient verbalized understanding and agreed with the plan. Orders: Orders US pelvic and transvaginal Today R10.2 - Pelvic and perineal pain Pap Smear Today R10.2 - Pelvic and perineal pain, Z01.419 - Encounter for gy necological examination (general) (routine) without abnormal findings HPV High risk Today R10.2 - Pelvic and perineal pain, Z01.419 - Encounter for gynecological examination (general) (routine) without abnormal findings CT NG by PCR Urine Today R10.2 - Pelvic and perineal pain AMB Urinalysis Dipstick Today R10.2 - Pelvic and perineal pain Coding Level of Care Code Est Pt Prev Care 40-64y(91758) Diagnoses Well woman exam with routine gynecological exam Z01.419 Pelvic pain R10.2
--- OUTSIDE RECORDS SUMMARY | 2025-07-26 15:27 | XMS_ITS | Clinical Summary ---
Author Organization [facility] Address [address] [place] [address] [place] [address] Phone Care Team Providers Care Shaper Hand Name Role Phone Unavailable Primary Care Provider [...] It is not the complete legal health record.[facility]
--- OUTSIDE RECORDS SUMMARY | 2025-07-26 15:27 | XMS_ITS | Patient Health Record ---
Author Organization [facility] Address [address] [place] [address] Care Team Providers Care Diet Tech Name Role Phone Arian Tian MD Primary Care Provider Jose M Ferraro Unavailable [phone] Reason For Referral No Information Medications Medication SIG (Take, Route, Fr equency, Duration) Notes Start Date End Date Status Gabapentin 100 MG as directed Orally Active Savella 50 MG 1 tablet Orally Twic e a day; Duration: 30 day(s) Active Problems Problem Type SNOMED Code ICD Code Onset Dates Problem Status W/U Status Risk Notes Problem Disorder of joint of ankle and/or foot (857383727) Arthritis - Degenerative (719.97) Active confirmed Problem Neuralgia - Neuritis (729.2) Active confirmed Problem Hallux valgus (702172203) Hallux Valgus (735.0) Active confirmed Problem Congenital pes planus (86431667) Flat Foot, Congenital (754.61) Active confirmed Problem Pain in limb (29066894) Pain in Limb (729.5) Active confirmed Plan Of Treatment Pending Test Test Name Order Date X ray : Foot, right 3V 06/02/2013 Insurance Providers Payer Name Payer Address Payer Phone Subscriber Number Group Number Insured Name Patient Relationship to Insured Coverage Start Date Coverage End Date [facility] [employer] Claims [address] [place] [phone] [id number] Kisha Stewart Self - patient is the insured Medical (General) History Medical History History ICD Code anxiety Arthritis asthma back, hip, knee pain depression hypertension nerve disease neuropathy poor circulation chicken pox measles mumps fibromyalgia Surgical History Surgery Date(Month/Year) knee surgery, left tubal ligation shoulder surgery
--- OUTSIDE RECORDS SUMMARY | 2025-07-26 15:27 | XMS_ITS | Clinical Summary ---
Author Organization [facility] Address [address] [place] [address] Care Team Providers Care Aerospace Project Manager Name Role Phone Delvis Campbell MD Primary Care Provider [phone] Allergies No known active allergies Medications Medication [...] age to complete this topic Care Teams Aerospace Project Manager Relationship Specialty Start Date End Date Delvis Campbell MD PCP - General Internal Medicine 07/10/17
== END 2025-07-26 14:35 | disposition home or self-care (01) ==
LOC: HO.HWS 14:05
PROVIDERS: PCP Internal Medicine; Visit Provider Obstetrics & Gynecology
DX: Z01.419 Encounter for gynecological examination (general) (routine) without abnormal findings (principal); R10.2 Pelvic and perineal pain
CPT/HCPCS: 99396; 99459

== ENCOUNTER 2025-07-26 14:05 | Outpatient (REF) | payer OTHER, SELFPAY ==
[2025-07-27 11:45] LABS: CT PCR Urine NOT DETECTED (Not Detect.); NG PCR Urine NOT DETECTED (Not Detect.)
== END 2025-07-26 14:06 | disposition home or self-care (01) ==
LOC: HO.LNP 14:05
PROVIDERS: PCP Internal Medicine; Visit Provider Obstetrics & Gynecology
DX: Z01.419 Encounter for gynecological examination (general) (routine) without abnormal findings (principal); R10.2 Pelvic and perineal pain; Z11.51 Encounter for screening for human papillomavirus (HPV); Z20.2 Contact with and (suspected) exposure to infections with a predominantly sexual mode of transmission; Z98.51 Tubal ligation status
CPT/HCPCS: 81002; 87491; 87591; 87626; 88175; 99396